=== PATIENT | male | born 1950 | race Caucasian/White ===

== ENCOUNTER 2023-02-20 20:29 | Inpatient (IN) | payer MEDICARE, BC ==
[~2023-02-20] VITALS: Ht 182.9 cm; Wt 79.4 kg
[2023-02-20] MEDS ORDERED: SERT25TA PO (20:58)
[2023-02-20] MEDS ORDERED: paxlovid PO (20:58)
[2023-02-20] MEDS ORDERED: HALO50AM2 PO (20:58)
[2023-02-20] MEDS ORDERED: ACET-3117 PO (20:58)
[2023-02-20] MEDS ORDERED: POLY17PO4 PO (20:58)
[2023-02-20] MEDS ORDERED: LORA0.5T48 PO (20:58)
[2023-02-20] MEDS ORDERED: ONDA-104 PO (20:58)
[2023-02-20] MEDS ORDERED: HYDR-501 PO (20:58)
[2023-02-20] MEDS ORDERED: DIVA500T54 PO (20:58)
[2023-02-20] MEDS ORDERED: CRAN500T3 PO (20:58)
[2023-02-20] MEDS ORDERED: TAMS-3 PO (20:58)
[2023-02-20] MEDS ORDERED: RISP0.5T65 PO (20:58)
[2023-02-20] MEDS ORDERED: MAGN400O6 PO (20:58)
[2023-02-20] MEDS ORDERED: LOPE2TAB25 PO (20:58)
[2023-02-20] MEDS ORDERED: CHOLECALCIFEROL 1,000 UNIT TABLET PO SCH (21:00)
[2023-02-20] MEDS ORDERED: CHOLECALCIFEROL 1,000 UNIT TABLET ONE (21:05)
[2023-02-20 21:13] LABS: HEMOGLOBIN 13.9 g/dL (12.5-16.3); MEAN CORPUSCULAR VOLUME 89.4 fL (73.0-96.2); WHITE BLOOD COUNT (AUTO) 4.8 K/uL (3.6-10.2)
[2023-02-20] MEDS ORDERED: DEXAMETHASONE SOD PHOSPHATE 4 MG INJ IV ONE (21:15)
[2023-02-20 21:19] LABS: CALCIUM 9.1 mg/dL (8.5-10.1); CARBON DIOXIDE 24 mmol/L (21-32); CHLORIDE 101 mmol/L (98-107); CREATININE 1.4 mg/dL (0.6-1.3); GLUCOSE 130 mg/dL (74-106); POTASSIUM 3.6 mmol/L (3.5-5.1); SODIUM SERUM 136 mmol/L (136-145); UREA NITROGEN, BLOOD 21 mg/dL (7-18)
[2023-02-20 21:21] LABS: BASOPHILS % (AUTO) 0.2 % (0.0-2.0); DIFFERENTIAL COMMENT 0; EOSINOPHILS % (AUTO) 0.1 % (0.0-7.0); HEMATOCRIT 40.4 % (36.7-47.1); LYMPHOCYTES # (AUTO) 0.9 K/uL (0.8-4.8); LYMPHOCYTES % (AUTO) 17.7 % (20.5-51.5); MEAN CORPUSCULAR HEMOGLOBIN 30.8 uug (23.8-33.4); MEAN CORPUSCULAR HGB CONC 34 g/dL (32.5-36.3); MONOCYTES # (AUTO) 0.5 K/uL (0.1-1.30); MONOCYTES % (AUTO) 10.8 % (0.0-11.0); NEUTROPHILS # (AUTO) 3.4 K/uL (1.8-8.9); NEUTROPHILS % (AUTO) 71.2 % (38.5-71.5); RED BLOOD CELL COUNT(AUTO) 4.52 MIL/uL (4.06-5.63); RED CELL DISTRIBUTION WIDTH 14.3 % (12.1-16.2)
[2023-02-20 21:24] LABS: PLATELET COUNT (AUTO) 47 K/uL (152-348)
[2023-02-20] MEDS ORDERED: DEXAMETHASONE SOD PHOSPHATE 4 MG INJ ONE (21:39)
[2023-02-20 21:57] LABS: ALANINE AMINOTRANSFERASE 46 U/L (16-63); ALBUMIN 2.8 g/dL (3.4-5.0); ALKALINE PHOSPHATASE 38 U/L (50-136); ASPARTATE AMINOTRANSFERASE 127 U/L (15-37); BILIRUBIN,TOTAL 1.1 mg/dL (0.2-1.0); FERRITIN 1443 ng/mL (26-388); LACTATE DEHYDROGENASE 409 U/L (85-227); NT-PRO BNP 2741 pg/mL (0-125); TOTAL PROTEIN, SERUM 6.4 g/dL (6.4-8.2)
[2023-02-20 22:01] LABS: C-REACTIVE PROTEIN > 25.0 mg/dL (0.0-0.9)
[2023-02-20] MEDS ORDERED: MIRALAX 17 GM POWD.PACK PO PRN (22:15)
[2023-02-20] MEDS ORDERED: MORPHINE SULFATE 2 MG/1 ML DISP.SYRIN IV PRN (22:30)
[2023-02-20] MEDS ORDERED: ALBUTEROL SULFATE 2.5 MG/ 0.5 ML NEBU NEB PRN (22:30)
[2023-02-20] MEDS ORDERED: ONDANSETRON 4 MG/2 ML VIAL IV PRN (22:30)
[2023-02-21 00:40] VITALS: BP 111/64; TEMP 98; O2SAT 96
[2023-02-21] MEDS ORDERED: ENOXAPARIN SODIUM 80 MG/0.8 ML DISP.SYRIN SQ SCH ×3 (01:00→13:00)
[2023-02-21] MEDS ORDERED: ACETAMINOPHEN 325 MG TABLET PO PRN (01:00)
[2023-02-21 04:00] VITALS: BP 116/60; TEMP 98.6; O2SAT 97
[2023-02-21] MEDS: PANTOPRAZOLE SODIUM 40 MG TABLET.DR PO SCH (06:22)
[2023-02-21 06:46] LABS: BASOPHILS % (AUTO) 0.1 % (0.0-2.0); HEMATOCRIT 40.9 % (36.7-47.1); HEMOGLOBIN 13.8 g/dL (12.5-16.3); LYMPHOCYTES # (AUTO) 0.6 K/uL (0.8-4.8); LYMPHOCYTES % (AUTO) 12.9 % (20.5-51.5); MEAN CORPUSCULAR HEMOGLOBIN 30.3 uug (23.8-33.4); MEAN CORPUSCULAR HGB CONC 34 g/dL (32.5-36.3); MEAN CORPUSCULAR VOLUME 89.9 fL (73.0-96.2); MONOCYTES # (AUTO) 0.4 K/uL (0.1-1.30); MONOCYTES % (AUTO) 9.8 % (0.0-11.0); NEUTROPHILS # (AUTO) 3.5 K/uL (1.8-8.9); NEUTROPHILS % (AUTO) 77.2 % (38.5-71.5); PLATELET COUNT (AUTO) 54 K/uL (152-348); RED BLOOD CELL COUNT(AUTO) 4.55 MIL/uL (4.06-5.63); RED CELL DISTRIBUTION WIDTH 14.3 % (12.1-16.2); WHITE BLOOD COUNT (AUTO) 4.5 K/uL (3.6-10.2)
[2023-02-21 07:13] LABS: IRON, SERUM 9 ug/dL (50-175)
[2023-02-21 07:14] LABS: DIFFERENTIAL COMMENT 1
[2023-02-21 07:15] LABS: CALCIUM 9.5 mg/dL (8.5-10.1); CARBON DIOXIDE 25 mmol/L (21-32); CHLORIDE 104 mmol/L (98-107); CREATININE 1.2 mg/dL (0.6-1.3); GLUCOSE 144 mg/dL (74-106); SODIUM SERUM 136 mmol/L (136-145); UREA NITROGEN, BLOOD 19 mg/dL (7-18)
[2023-02-21 07:24] LABS: THYROID STIMULATING HORMONE 0.227 mIU/mL (0.358-3.740)
[2023-02-21 07:54] LABS: ALANINE AMINOTRANSFERASE 37 U/L (16-63); ALBUMIN 2.6 g/dL (3.4-5.0); ALKALINE PHOSPHATASE 33 U/L (50-136); ASPARTATE AMINOTRANSFERASE 108 U/L (15-37); BILIRUBIN,TOTAL 0.9 mg/dL (0.2-1.0); CHOLESTEROL 130 mg/dL (<200); HDL CHOLESTEROL 52 mg/dL (40-60); MAGNESIUM 2.3 mg/dL (1.8-2.4); NT-PRO BNP 2418 pg/mL (0-125); PHOSPHOROUS 2.3 mg/dL (2.5-4.9); TOTAL PROTEIN, SERUM 6.3 g/dL (6.4-8.2); TRIGLYCERIDES 98 MG/DL (30-150)
[2023-02-21] MEDS ORDERED: ASPIRIN EC 81 MG TABLET.DR PO SCH ×2 (09:00→10:52)
[2023-02-21] MEDS ORDERED: DIVALPROEX ER 250 MG TAB.SR.24H PO SCH (09:00)
[2023-02-21] MEDS ORDERED: PAXLOVID PO SCH (09:00)
[2023-02-21] MEDS: risperiDONE 0.5 MG TABLET PO SCH ×2 (09:14→15:51)
[2023-02-21] MEDS: DIVALPROEX 250 MG TABLET.DR PO SCH ×2 (09:14→15:51)
[2023-02-21] MEDS: SERTRALINE HCL 50 MG TABLET PO SCH (09:14)
[2023-02-21] MEDS: DEXAMETHASONE SOD PHOSPHATE 4 MG INJ IV SCH (09:14)
[2023-02-21 09:31] LABS: FERRITIN 1376 ng/mL (26-388)
[2023-02-21] MEDS ORDERED: NORMAL SALINE NASAL 45 ML BOTTLE NS PRN (10:15)
[2023-02-21 11:29] LABS: *RHEUMATOID FACTOR SCREEN NEGATIVE (NEGATIVE)
[2023-02-21 11:57] VITALS: BP 128/69; TEMP 98.1; O2SAT 72; O2SAT 94
[2023-02-21] MEDS ORDERED: REMDESIVIR (CHARGED) 200 MG in IV NORMAL SALINE 210 ML IV ONE (13:00)
[2023-02-21 14:15] LABS: BASOPHILS # (AUTO) 0.1 K/UL (0.0-0.2); BASOPHILS % (AUTO) 1.4 % (0.0-2.0); EOSINOPHILS % (AUTO) 0.1 % (0.0-7.0); HEMATOCRIT 42.4 % (36.7-47.1); LYMPHOCYTES # (AUTO) 0.4 K/uL (0.8-4.8); LYMPHOCYTES % (AUTO) 9.5 % (20.5-51.5); MEAN CORPUSCULAR HGB CONC 33 g/dL (32.5-36.3); MEAN CORPUSCULAR VOLUME 90.7 fL (73.0-96.2); MONOCYTES # (AUTO) 0.4 K/uL (0.1-1.30); MONOCYTES % (AUTO) 8.3 % (0.0-11.0); NEUTROPHILS # (AUTO) 3.4 K/uL (1.8-8.9); NEUTROPHILS % (AUTO) 80.7 % (38.5-71.5); PLATELET COUNT (AUTO) 63 K/uL (152-348); RED BLOOD CELL COUNT(AUTO) 4.68 MIL/uL (4.06-5.63); RED CELL DISTRIBUTION WIDTH 14.3 % (12.1-16.2); WHITE BLOOD COUNT (AUTO) 4.2 K/uL (3.6-10.2)
[2023-02-21 14:24] LABS: DIFFERENTIAL COMMENT 1
[2023-02-21] MEDS: ASPIRIN EC 81 MG TABLET.DR PO SCH (14:48)
[2023-02-21] MEDS: hydrOXYzine HCL 25 MG TABLET PO SCH (14:48)
[2023-02-21] MEDS ORDERED: SWABABLE VALVE TRANSFER SET EA MC ONE (14:59)
[2023-02-21] MEDS ORDERED: IOHEXOL 350 100 ML INFUS..BTL ONE (14:59)
[2023-02-21] MEDS ORDERED: IV NORMAL SALINE 250 ML IV ONE (14:59)
[2023-02-21] MEDS: GUAIFENESIN/DEXTROMETHORPHAN 5 ML UDC PO PRN (15:38)
[2023-02-21 16:15] VITALS: BP 154/71; TEMP 97.5; O2SAT 94
[2023-02-21] MEDS ORDERED: NEUTRA PHOS PACKET PO ONE (17:00)
[2023-02-21 17:01] LABS: ABG BASE EXCESS 0.3 mmol/L; ABG HCO3 22.1 mmol/L; ABG PCO2 28.7 mmHg (35.0-45.0); ABG PH 7.504 (7.350-7.450); ABG PO2 43.2 mmHg (75.0-100.0); ABG SITE RIGHT RADIAL; ABG TOTAL HEMOGLOBIN 15.2 G/dL (13.5-18.0); COHb 0.3 % (0.5-1.5); MetHb 0.4 % (0.0-1.5); O2Hb 81.5 % (94.0-97.0)
[2023-02-21] MEDS: BENZOCAINE/MENTH/CETYLPYRD LOZENGE MM PRN (17:39)
[2023-02-21 18:44] LABS: ABG BASE EXCESS 1.1 mmol/L; ABG HCO3 23.4 mmol/L; ABG PCO2 31.1 mmHg (35.0-45.0); ABG PH 7.494 (7.350-7.450); ABG PO2 58.9 mmHg (75.0-100.0); ABG SITE RIGHT RADIAL; ABG TOTAL HEMOGLOBIN 15.2 G/dL (13.5-18.0); COHb 0.6 % (0.5-1.5); MetHb 0.3 % (0.0-1.5); O2Hb 90.8 % (94.0-97.0)
[2023-02-21] MEDS ORDERED: CEPH500C2 PO (19:22)
[2023-02-21 20:18] VITALS: BP 110/73; TEMP 98.9; O2SAT 98
[2023-02-21] MEDS ORDERED: VANCOMYCIN IV 1,500 MG in IV DEXTROSE 5% 500 ML IV ONE (20:30)
[2023-02-21] MEDS ORDERED: VANCOMYCIN 1000 MG VIAL ONE (20:52)
[2023-02-21] MEDS ORDERED: VANCOMYCIN HCL 500 MG VIAL ONE (20:53)
[2023-02-21] MEDS ORDERED: PIPERACILLIN/TAZO 4.5 GM VIAL IV ONE ×2 (20:53→20:54)
[2023-02-21] MEDS: TAMSULOSIN HCL 0.4 MG CAP.SR.24H PO SCH (21:32)
[2023-02-21] MEDS: TRAZODONE 100 MG TABLET PO PRN (21:33)
[2023-02-21] MEDS ORDERED: PIPERACILLIN SODIUM/TAZOBACTAM 4.5 G in IV DEXTROSE 5% 50 ML IV SCH (22:00)
[2023-02-21] MEDS ORDERED: REMDESIVIR (CHARGED) 100 MG in IV NORMAL SALINE 100 ML IV SCH (22:30)
[2023-02-21 23:16] VITALS: O2SAT 94
[2023-02-22] MEDS: PIPERACILLIN SODIUM/TAZOBACTAM 4.5 G in IV DEXTROSE 5% 50 ML IV SCH ×2 (00:10→06:42)
[2023-02-22 05:14] VITALS: BP 144/68; TEMP 98.2
[2023-02-22 05:58] LABS: *BILIRUBIN,URIN NEGATIVE (NEGATIVE); *BLOOD, URINE 2+ (NEGATIVE); *CLARITY,URINE CLEAR (CLEAR); *COLOR,URINE YELLOW (YELLOW); *KETONES,URINE TRACE (NEGATIVE); *UROBILINOGEN,URINE 0.2 E.U./dl (NORMAL); LEUKOCYTE ESTERASE ,URINE NEGATIVE (NEGATIVE); PH,URINE 6.5 (5.0-8.0); UGLUCOSE NEGATIVE (NEGATIVE)
[2023-02-22 06:11] LABS: *PROTEIN,URINE 3+ (NEGATIVE); NITRITE, URINE NEGATIVE (NEGATIVE)
[2023-02-22 06:17] LABS: BACTERIA,URINE FEW /HPF (NONE SEEN); SQUAMOUS EPITHELIAL CELL,UR FEW /HPF (NONE SEEN); WBC,URINE 0-3 /HPF (0-3)
[2023-02-22] MEDS: PANTOPRAZOLE SODIUM 40 MG TABLET.DR PO SCH (06:43)
[2023-02-22 07:06] LABS: BASOPHILS % (AUTO) 0.1 % (0.0-2.0); HEMATOCRIT 41.6 % (36.7-47.1); HEMOGLOBIN 14.3 g/dL (12.5-16.3); LYMPHOCYTES # (AUTO) 0.6 K/uL (0.8-4.8); LYMPHOCYTES % (AUTO) 10.4 % (20.5-51.5); MEAN CORPUSCULAR HEMOGLOBIN 30.7 uug (23.8-33.4); MEAN CORPUSCULAR HGB CONC 34 g/dL (32.5-36.3); MEAN CORPUSCULAR VOLUME 89.5 fL (73.0-96.2); MONOCYTES # (AUTO) 0.7 K/uL (0.1-1.30); MONOCYTES % (AUTO) 12.8 % (0.0-11.0); NEUTROPHILS # (AUTO) 4.1 K/uL (1.8-8.9); NEUTROPHILS % (AUTO) 76.7 % (38.5-71.5); PLATELET COUNT (AUTO) 76 K/uL (152-348); RED BLOOD CELL COUNT(AUTO) 4.64 MIL/uL (4.06-5.63); RED CELL DISTRIBUTION WIDTH 14.3 % (12.1-16.2); WHITE BLOOD COUNT (AUTO) 5.4 K/uL (3.6-10.2)
[2023-02-22 07:19] LABS: DIFFERENTIAL COMMENT 1
[2023-02-22 07:20] VITALS: O2SAT 91
[2023-02-22 07:27] LABS: LYMPHOCYTES % (MANUAL) 0 % (20-40); NEUTROPHILS % (MANUAL) 0 % (42-75)
[2023-02-22 07:32] LABS: ALANINE AMINOTRANSFERASE 33 U/L (16-63); ALBUMIN 2.4 g/dL (3.4-5.0); ALKALINE PHOSPHATASE 34 U/L (50-136); ASPARTATE AMINOTRANSFERASE 49 U/L (15-37); BILIRUBIN,DIRECT 0.1 mg/dL (0.0-0.2); BILIRUBIN,TOTAL 0.8 mg/dL (0.2-1.0); CALCIUM 9.4 mg/dL (8.5-10.1); CARBON DIOXIDE 23 mmol/L (21-32); CHLORIDE 104 mmol/L (98-107); CREATININE 1.2 mg/dL (0.6-1.3); GLUCOSE 146 mg/dL (74-106); PHOSPHOROUS 2.5 mg/dL (2.5-4.9); POTASSIUM 3.9 mmol/L (3.5-5.1); SODIUM SERUM 140 mmol/L (136-145); TOTAL PROTEIN, SERUM 6.3 g/dL (6.4-8.2); UREA NITROGEN, BLOOD 29 mg/dL (7-18)
[2023-02-22 08:00] VITALS: BP 127/70; TEMP 97.8
[2023-02-22 08:07] LABS: *IMMUNOGLOBULIN G, SERUM 728 mg/dL (603-1613); IMMUNOGLOBULIN A, SERUM 216 mg/dL (61-437); IMMUNOGLOBULIN M, SERUM 75 mg/dL (15-143)
[2023-02-22] MEDS: risperiDONE 0.5 MG TABLET PO SCH ×2 (08:54→16:36)
[2023-02-22] MEDS: DIVALPROEX 250 MG TABLET.DR PO SCH ×2 (08:54→16:36)
[2023-02-22] MEDS: SERTRALINE HCL 50 MG TABLET PO SCH (08:54)
[2023-02-22] MEDS: DEXAMETHASONE SOD PHOSPHATE 4 MG INJ IV SCH (08:55)
[2023-02-22] MEDS: ASPIRIN EC 81 MG TABLET.DR PO SCH (09:03)
[2023-02-22] MEDS: ENOXAPARIN SODIUM 40 MG/0.4 ML DISP.SYRIN SQ SCH (09:08)
[2023-02-22 10:07] LABS: FOLATE (FOLIC ACID), SERUM 9.1 ng/mL (>3.0)
[2023-02-22 11:39] VITALS: BP 129/71; TEMP 97.9; O2SAT 98
[2023-02-22] MEDS: hydrOXYzine HCL 25 MG TABLET PO SCH (12:16)
[2023-02-22 13:06] LABS: FREE KAPPA LT CHAINS SERUM 26.5 mg/L (3.3-19.4); FREE LAMBDA LT CHAIN SERUM 22.5 mg/L (5.7-26.3); KAPPA/LAMBDA RATIO SERUM 1.18 (0.26-1.65)
[2023-02-22] MEDS: REMDESIVIR (CHARGED) 100 MG in IV NORMAL SALINE 100 ML IV SCH (13:25)
[2023-02-22 14:06] LABS: *ANTI-SCLERODERMA-70 AB <0.2 AI (0.0-0.9); *RNP ANTIBODIES <0.2 AI (0.0-0.9); *SJOGREN'S ANTI-SS-A <0.2 AI (0.0-0.9); *SJOGREN'S ANTI-SS-B <0.2 AI (0.0-0.9); *SMITH ANTIBODIES <0.2 AI (0.0-0.9); ANTI-DNA(DS) AB, QN 1 IU/mL (0-9); ANTI-NUCLEAR AB DIRECT Negative (Negative)
[2023-02-22] MEDS: PIPERACILLIN SODIUM/TAZOBACTAM 3.375 G in IV DEXTROSE 5% 100 ML IV SCH ×2 (14:28→22:04)
[2023-02-22 15:07] LABS: A/G RATIO 0.7 (0.7-1.7); ALBUMIN 2.4 g/dL (2.9-4.4); ALPHA-1-GLOBULIN 0.5 g/dL (0.0-0.4); BETA GLOBULIN 0.8 g/dL (0.7-1.3); GAMMA GLOBULIN 1.3 g/dL (0.4-1.8); GLOBULIN, TOTAL 3.5 g/dL (2.2-3.9); M-SPIKE Not Observed g/dL (Not Observed)
[2023-02-22 16:00] VITALS: BP 125/66; TEMP 98.2; O2SAT 95
[2023-02-22 20:00] VITALS: BP 133/70; TEMP 98.3; O2SAT 96
[2023-02-22] MEDS: TRAZODONE 100 MG TABLET PO PRN (20:17)
[2023-02-22] MEDS: TAMSULOSIN HCL 0.4 MG CAP.SR.24H PO SCH (20:17)
[2023-02-23] MEDS: LORAZEPAM 0.5 MG TABLET PO PRN ×2 (02:09→10:45)
[2023-02-23 03:06] LABS: HEPATITIS B SURFACE AB, QUAL Non Reactive (.); HEPATITIS B SURFACE AG Negative (Negative); HEPATITIS C VIRUS ANTIBODY Non Reactive (Non Reactive)
[2023-02-23] MEDS: PIPERACILLIN SODIUM/TAZOBACTAM 3.375 G in IV DEXTROSE 5% 100 ML IV SCH ×3 (05:36→21:29)
[2023-02-23 06:12] VITALS: BP 130/63; TEMP 99.2; O2SAT 96
[2023-02-23] MEDS: PANTOPRAZOLE SODIUM 40 MG TABLET.DR PO SCH (06:20)
[2023-02-23 06:34] LABS: HEMATOCRIT 40.8 % (36.7-47.1); HEMOGLOBIN 13.7 g/dL (12.5-16.3); LYMPHOCYTES # (AUTO) 0.7 K/uL (0.8-4.8); LYMPHOCYTES % (AUTO) 10.5 % (20.5-51.5); MEAN CORPUSCULAR HEMOGLOBIN 30.4 uug (23.8-33.4); MEAN CORPUSCULAR HGB CONC 34 g/dL (32.5-36.3); MEAN CORPUSCULAR VOLUME 90.3 fL (73.0-96.2); MONOCYTES # (AUTO) 0.7 K/uL (0.1-1.30); NEUTROPHILS % (AUTO) 78.5 % (38.5-71.5); PLATELET COUNT (AUTO) 100 K/uL (152-348); RED BLOOD CELL COUNT(AUTO) 4.51 MIL/uL (4.06-5.63); RED CELL DISTRIBUTION WIDTH 14.8 % (12.1-16.2); WHITE BLOOD COUNT (AUTO) 6.4 K/uL (3.6-10.2)
[2023-02-23 06:48] LABS: DIFFERENTIAL COMMENT 1
[2023-02-23 06:58] LABS: ALANINE AMINOTRANSFERASE 27 U/L (16-63); ALBUMIN 2.5 g/dL (3.4-5.0); ALKALINE PHOSPHATASE 33 U/L (50-136); ASPARTATE AMINOTRANSFERASE 26 U/L (15-37); BILIRUBIN,DIRECT 0.2 mg/dL (0.0-0.2); BILIRUBIN,TOTAL 0.6 mg/dL (0.2-1.0); CARBON DIOXIDE 26 mmol/L (21-32); CHLORIDE 105 mmol/L (98-107); CREATININE 1.4 mg/dL (0.6-1.3); GLUCOSE 170 mg/dL (74-106); POTASSIUM 3.6 mmol/L (3.5-5.1); SODIUM SERUM 141 mmol/L (136-145); TOTAL PROTEIN, SERUM 6.2 g/dL (6.4-8.2); UREA NITROGEN, BLOOD 35 mg/dL (7-18)
[2023-02-23 07:07] LABS: CALCIUM 9.4 mg/dL (8.5-10.1)
[2023-02-23 08:02] VITALS: BP 128/77; TEMP 98.1; O2SAT 96
[2023-02-23] MEDS: SERTRALINE HCL 50 MG TABLET PO SCH (08:37)
[2023-02-23] MEDS: DEXAMETHASONE SOD PHOSPHATE 4 MG INJ IV SCH (08:37)
[2023-02-23] MEDS: ASPIRIN EC 81 MG TABLET.DR PO SCH (08:38)
[2023-02-23] MEDS: risperiDONE 0.5 MG TABLET PO SCH ×2 (08:38→16:50)
[2023-02-23] MEDS: DIVALPROEX 250 MG TABLET.DR PO SCH ×2 (08:38→16:50)
[2023-02-23] MEDS: ENOXAPARIN SODIUM 40 MG/0.4 ML DISP.SYRIN SQ SCH (08:39)
[2023-02-23] MEDS: GUAIFENESIN/DEXTROMETHORPHAN 5 ML UDC PO PRN (08:41)
[2023-02-23 11:12] VITALS: BP 126/52; TEMP 97.6; O2SAT 97
[2023-02-23 11:34] VITALS: BP 126/52; TEMP 97.6; O2SAT 97
[2023-02-23] MEDS: hydrOXYzine HCL 25 MG TABLET PO SCH (12:21)
[2023-02-23] MEDS: REMDESIVIR (CHARGED) 100 MG in IV NORMAL SALINE 100 ML IV SCH (13:02)
[2023-02-23 15:11] VITALS: BP 133/69; TEMP 98.6; O2SAT 96
[2023-02-23 20:00] VITALS: BP 130/65; TEMP 98.4; O2SAT 95
[2023-02-23] MEDS: TAMSULOSIN HCL 0.4 MG CAP.SR.24H PO SCH (21:18)
[2023-02-24] VITALS (7 sets, daily range): BP systolic 136–142; BP diastolic 68–79; TEMP 97.7–98.5; O2SAT 91–96
[2023-02-24] MEDS: PIPERACILLIN SODIUM/TAZOBACTAM 3.375 G in IV DEXTROSE 5% 100 ML IV SCH ×3 (05:41→21:26)
[2023-02-24] MEDS: PANTOPRAZOLE SODIUM 40 MG TABLET.DR PO SCH (06:03)
[2023-02-24 06:50] LABS: HEMOGLOBIN 13.3 g/dL (12.5-16.3); LYMPHOCYTES # (AUTO) 0.8 K/uL (0.8-4.8); LYMPHOCYTES % (AUTO) 9.7 % (20.5-51.5); MEAN CORPUSCULAR HEMOGLOBIN 30.8 uug (23.8-33.4); MEAN CORPUSCULAR HGB CONC 34 g/dL (32.5-36.3); MEAN CORPUSCULAR VOLUME 90.3 fL (73.0-96.2); MONOCYTES # (AUTO) 0.9 K/uL (0.1-1.30); NEUTROPHILS # (AUTO) 6.5 K/uL (1.8-8.9); NEUTROPHILS % (AUTO) 79.3 % (38.5-71.5); PLATELET COUNT (AUTO) 110 K/uL (152-348); RED BLOOD CELL COUNT(AUTO) 4.32 MIL/uL (4.06-5.63); RED CELL DISTRIBUTION WIDTH 14.3 % (12.1-16.2); WHITE BLOOD COUNT (AUTO) 8.2 K/uL (3.6-10.2)
[2023-02-24 07:04] LABS: DIFFERENTIAL COMMENT 1
[2023-02-24 07:12] LABS: ALBUMIN 2.4 g/dL (3.4-5.0); BILIRUBIN,DIRECT 0.1 mg/dL (0.0-0.2); BILIRUBIN,TOTAL 0.5 mg/dL (0.2-1.0); CALCIUM 8.8 mg/dL (8.5-10.1); CREATININE 1.2 mg/dL (0.6-1.3); POTASSIUM 3.5 mmol/L (3.5-5.1); TOTAL PROTEIN, SERUM 5.9 g/dL (6.4-8.2)
[2023-02-24 07:17] LABS: C-REACTIVE PROTEIN 2.9 mg/dL (0.0-0.9)
[2023-02-24] MEDS: BENZOCAINE/MENTH/CETYLPYRD LOZENGE MM PRN (07:52)
[2023-02-24] MEDS: SERTRALINE HCL 50 MG TABLET PO SCH (07:53)
[2023-02-24] MEDS: ASPIRIN EC 81 MG TABLET.DR PO SCH (07:53)
[2023-02-24] MEDS: DIVALPROEX 250 MG TABLET.DR PO SCH ×2 (07:53→16:09)
[2023-02-24] MEDS: risperiDONE 0.5 MG TABLET PO SCH ×2 (07:53→16:09)
[2023-02-24] MEDS: ENOXAPARIN SODIUM 40 MG/0.4 ML DISP.SYRIN SQ SCH (07:54)
[2023-02-24] MEDS: DEXAMETHASONE SOD PHOSPHATE 4 MG INJ IV SCH (07:56)
[2023-02-24] MEDS: REMDESIVIR (CHARGED) 100 MG in IV NORMAL SALINE 100 ML IV SCH (12:21)
[2023-02-24] MEDS: hydrOXYzine HCL 25 MG TABLET PO SCH (12:24)
[2023-02-24] MEDS: PROTEIN SUPPLEMENT (PROSTAT) 30 ML LIQUID PO SCH (16:09)
[2023-02-24] MEDS: TAMSULOSIN HCL 0.4 MG CAP.SR.24H PO SCH (21:26)
[2023-02-25 00:17] VITALS: BP 135/72; TEMP 98.3; O2SAT 96
[2023-02-25 04:50] VITALS: BP 144/72; TEMP 98.4; O2SAT 97
[2023-02-25] MEDS: PIPERACILLIN SODIUM/TAZOBACTAM 3.375 G in IV DEXTROSE 5% 100 ML IV SCH ×3 (05:18→20:46)
[2023-02-25] MEDS: PANTOPRAZOLE SODIUM 40 MG TABLET.DR PO SCH (06:22)
[2023-02-25 06:35] LABS: BASOPHILS % (AUTO) 0.3 % (0.0-2.0); EOSINOPHILS % (AUTO) 0.1 % (0.0-7.0); HEMATOCRIT 38.9 % (36.7-47.1); LYMPHOCYTES # (AUTO) 0.9 K/uL (0.8-4.8); LYMPHOCYTES % (AUTO) 10.6 % (20.5-51.5); MEAN CORPUSCULAR HEMOGLOBIN 30.2 uug (23.8-33.4); MEAN CORPUSCULAR HGB CONC 34 g/dL (32.5-36.3); MEAN CORPUSCULAR VOLUME 90.1 fL (73.0-96.2); MONOCYTES # (AUTO) 1.4 K/uL (0.1-1.30); MONOCYTES % (AUTO) 16.2 % (0.0-11.0); NEUTROPHILS # (AUTO) 6.4 K/uL (1.8-8.9); NEUTROPHILS % (AUTO) 72.8 % (38.5-71.5); PLATELET COUNT (AUTO) 129 K/uL (152-348); RED BLOOD CELL COUNT(AUTO) 4.32 MIL/uL (4.06-5.63); RED CELL DISTRIBUTION WIDTH 14.1 % (12.1-16.2); WHITE BLOOD COUNT (AUTO) 8.8 K/uL (3.6-10.2)
[2023-02-25 06:39] LABS: DIFFERENTIAL COMMENT 1
[2023-02-25 06:51] LABS: ALBUMIN 2.3 g/dL (3.4-5.0); BILIRUBIN,DIRECT 0.1 mg/dL (0.0-0.2); BILIRUBIN,TOTAL 0.5 mg/dL (0.2-1.0); CALCIUM 9.2 mg/dL (8.5-10.1); CREATININE 1.1 mg/dL (0.6-1.3); POTASSIUM 3.9 mmol/L (3.5-5.1); TOTAL PROTEIN, SERUM 5.5 g/dL (6.4-8.2)
[2023-02-25] MEDS: risperiDONE 0.5 MG TABLET PO SCH ×2 (09:09→16:54)
[2023-02-25] MEDS: DEXAMETHASONE SOD PHOSPHATE 4 MG INJ IV SCH (09:09)
[2023-02-25] MEDS: DIVALPROEX 250 MG TABLET.DR PO SCH ×2 (09:09→16:53)
[2023-02-25] MEDS: ASPIRIN EC 81 MG TABLET.DR PO SCH (09:09)
[2023-02-25] MEDS: SERTRALINE HCL 50 MG TABLET PO SCH (09:10)
[2023-02-25] MEDS: ENOXAPARIN SODIUM 40 MG/0.4 ML DISP.SYRIN SQ SCH (09:11)
[2023-02-25] MEDS: ENSURE ENLIVE (VAN) 240 ML LIQUID PO SCH (09:12)
[2023-02-25] MEDS: PROTEIN SUPPLEMENT (PROSTAT) 30 ML LIQUID PO SCH ×2 (09:12→16:54)
[2023-02-25] MEDS: REMDESIVIR (CHARGED) 100 MG in IV NORMAL SALINE 100 ML IV SCH (13:16)
[2023-02-25] MEDS: hydrOXYzine HCL 25 MG TABLET PO SCH (13:16)
[2023-02-25 13:44] VITALS: BP 123/63; TEMP 97; O2SAT 97
[2023-02-25 14:41] LABS: BAND % (MANUAL) 2 % (0-10); LYMPHOCYTES % (MANUAL) 11 % (20-40); MONOCYTES % (MANUAL) 15 % (2-10); NEUTROPHILS % (MANUAL) 72 % (42-75)
[2023-02-25 14:42] LABS: ANISOCYTOSIS 1+; PLATELET ESTIMATE DECREASED
[2023-02-25 20:25] VITALS: BP 127/64; TEMP 98.5; O2SAT 94
[2023-02-25] MEDS: TAMSULOSIN HCL 0.4 MG CAP.SR.24H PO SCH (20:46)
[2023-02-25 23:52] VITALS: O2SAT 94
[2023-02-26] VITALS (8 sets, daily range): BP systolic 125–131; BP diastolic 64–69; TEMP 98–98.7; O2SAT 94–96
[2023-02-26] MEDS: PIPERACILLIN SODIUM/TAZOBACTAM 3.375 G in IV DEXTROSE 5% 100 ML IV SCH ×3 (05:12→21:01)
[2023-02-26] MEDS: PANTOPRAZOLE SODIUM 40 MG TABLET.DR PO SCH (05:12)
[2023-02-26 07:03] LABS: POTASSIUM 3.7 mmol/L (3.5-5.1)
[2023-02-26] MEDS: ENOXAPARIN SODIUM 40 MG/0.4 ML DISP.SYRIN SQ SCH (08:22)
[2023-02-26] MEDS: ASPIRIN EC 81 MG TABLET.DR PO SCH (08:36)
[2023-02-26] MEDS: risperiDONE 0.5 MG TABLET PO SCH ×2 (08:36→16:28)
[2023-02-26] MEDS: DIVALPROEX 250 MG TABLET.DR PO SCH ×2 (08:36→16:28)
[2023-02-26] MEDS: SERTRALINE HCL 50 MG TABLET PO SCH (08:37)
[2023-02-26] MEDS: PROTEIN SUPPLEMENT (PROSTAT) 30 ML LIQUID PO SCH ×2 (08:37→16:32)
[2023-02-26] MEDS: DEXAMETHASONE SOD PHOSPHATE 4 MG INJ IV SCH (08:37)
[2023-02-26] MEDS: ENSURE ENLIVE (VAN) 240 ML LIQUID PO SCH (08:38)
[2023-02-26] MEDS: hydrOXYzine HCL 25 MG TABLET PO SCH (13:18)
[2023-02-26] MEDS: BENZOCAINE/MENTH/CETYLPYRD LOZENGE MM PRN (18:05)
[2023-02-26] MEDS: TAMSULOSIN HCL 0.4 MG CAP.SR.24H PO SCH (20:21)
[2023-02-26] MEDS: TRAZODONE 100 MG TABLET PO PRN (20:21)
[2023-02-27] MEDS: PIPERACILLIN SODIUM/TAZOBACTAM 3.375 G in IV DEXTROSE 5% 100 ML IV SCH ×3 (05:09→21:39)
[2023-02-27] MEDS: PANTOPRAZOLE SODIUM 40 MG TABLET.DR PO SCH (06:24)
[2023-02-27 06:51] LABS: BASOPHILS % (AUTO) 0.2 % (0.0-2.0); EOSINOPHILS # (AUTO) 0.2 K/uL (0.0-0.7); EOSINOPHILS % (AUTO) 1.6 % (0.0-7.0); HEMATOCRIT 39.8 % (36.7-47.1); HEMOGLOBIN 13.5 g/dL (12.5-16.3); LYMPHOCYTES # (AUTO) 2.1 K/uL (0.8-4.8); LYMPHOCYTES % (AUTO) 18.4 % (20.5-51.5); MEAN CORPUSCULAR HEMOGLOBIN 30.3 uug (23.8-33.4); MEAN CORPUSCULAR HGB CONC 34 g/dL (32.5-36.3); MEAN CORPUSCULAR VOLUME 89.6 fL (73.0-96.2); MONOCYTES # (AUTO) 1.4 K/uL (0.1-1.30); MONOCYTES % (AUTO) 11.9 % (0.0-11.0); NEUTROPHILS # (AUTO) 7.9 K/uL (1.8-8.9); NEUTROPHILS % (AUTO) 67.9 % (38.5-71.5); PLATELET COUNT (AUTO) 183 K/uL (152-348); RED BLOOD CELL COUNT(AUTO) 4.44 MIL/uL (4.06-5.63); WHITE BLOOD COUNT (AUTO) 11.6 K/uL (3.6-10.2)
[2023-02-27 07:02] LABS: DIFFERENTIAL COMMENT 1
[2023-02-27 07:04] LABS: ALBUMIN 2.2 g/dL (3.4-5.0); BILIRUBIN,TOTAL 0.7 mg/dL (0.2-1.0); CALCIUM 8.4 mg/dL (8.5-10.1); CREATININE 1.1 mg/dL (0.6-1.3); MAGNESIUM 2.3 mg/dL (1.8-2.4); PHOSPHOROUS 2.5 mg/dL (2.5-4.9); POTASSIUM 3.7 mmol/L (3.5-5.1)
[2023-02-27] MEDS: ENOXAPARIN SODIUM 40 MG/0.4 ML DISP.SYRIN SQ SCH (10:00)
[2023-02-27] MEDS: risperiDONE 0.5 MG TABLET PO SCH ×2 (10:00→17:50)
[2023-02-27] MEDS: ASPIRIN EC 81 MG TABLET.DR PO SCH (10:00)
[2023-02-27] MEDS: DIVALPROEX 250 MG TABLET.DR PO SCH ×2 (10:00→17:50)
[2023-02-27] MEDS: DEXAMETHASONE SOD PHOSPHATE 4 MG INJ IV SCH (10:00)
[2023-02-27] MEDS: ENSURE ENLIVE (VAN) 240 ML LIQUID PO SCH (10:01)
[2023-02-27] MEDS: PROTEIN SUPPLEMENT (PROSTAT) 30 ML LIQUID PO SCH ×2 (10:01→17:50)
[2023-02-27] MEDS: SERTRALINE HCL 50 MG TABLET PO SCH (10:04)
[2023-02-27 11:20] LABS: BAND % (MANUAL) 2 % (0-10); EOSINOPHILS % (MANUAL) 1 % (0-8); LYMPHOCYTES % (MANUAL) 15 % (20-40); MONOCYTES % (MANUAL) 13 % (2-10); NEUTROPHILS % (MANUAL) 69 % (42-75); PLATELET ESTIMATE ADEQUATE
[2023-02-27 11:21] LABS: ANISOCYTOSIS 1+
[2023-02-27 11:50] VITALS: BP 107/56; TEMP 98.8; O2SAT 95
[2023-02-27] MEDS: hydrOXYzine HCL 25 MG TABLET PO SCH (14:04)
[2023-02-27 14:34] VITALS: BP 109/55; TEMP 98.8; O2SAT 96
[2023-02-27 15:59] VITALS: BP 110/58; TEMP 98.3; O2SAT 94
[2023-02-27 16:13] VITALS: O2SAT 94
[2023-02-27] MEDS: TAMSULOSIN HCL 0.4 MG CAP.SR.24H PO SCH (20:15)
[2023-02-27 20:30] VITALS: BP 106/56; TEMP 97.9; O2SAT 95
[2023-02-28] VITALS (7 sets, daily range): BP systolic 111–132; BP diastolic 59–65; TEMP 97.4–98.1; O2SAT 90–95
[2023-02-28] MEDS: PIPERACILLIN SODIUM/TAZOBACTAM 3.375 G in IV DEXTROSE 5% 100 ML IV SCH ×3 (05:36→21:09)
[2023-02-28] MEDS: PANTOPRAZOLE SODIUM 40 MG TABLET.DR PO SCH (06:23)
[2023-02-28 06:25] LABS: BASOPHILS % (AUTO) 0.2 % (0.0-2.0); EOSINOPHILS # (AUTO) 0.1 K/uL (0.0-0.7); EOSINOPHILS % (AUTO) 1.2 % (0.0-7.0); HEMATOCRIT 39.9 % (36.7-47.1); HEMOGLOBIN 13.1 g/dL (12.5-16.3); LYMPHOCYTES # (AUTO) 2.1 K/uL (0.8-4.8); LYMPHOCYTES % (AUTO) 18.1 % (20.5-51.5); MEAN CORPUSCULAR HEMOGLOBIN 29.7 uug (23.8-33.4); MEAN CORPUSCULAR HGB CONC 33 g/dL (32.5-36.3); MEAN CORPUSCULAR VOLUME 90.5 fL (73.0-96.2); MONOCYTES # (AUTO) 1.1 K/uL (0.1-1.30); MONOCYTES % (AUTO) 9.3 % (0.0-11.0); NEUTROPHILS # (AUTO) 8.4 K/uL (1.8-8.9); NEUTROPHILS % (AUTO) 71.2 % (38.5-71.5); PLATELET COUNT (AUTO) 202 K/uL (152-348); RED BLOOD CELL COUNT(AUTO) 4.41 MIL/uL (4.06-5.63); RED CELL DISTRIBUTION WIDTH 14.4 % (12.1-16.2); WHITE BLOOD COUNT (AUTO) 11.8 K/uL (3.6-10.2)
[2023-02-28 06:58] LABS: DIFFERENTIAL COMMENT 1
[2023-02-28 07:00] LABS: C-REACTIVE PROTEIN 0.6 mg/dL (0.0-0.9); CALCIUM 8.5 mg/dL (8.5-10.1); CREATININE 1.1 mg/dL (0.6-1.3); MAGNESIUM 2.4 mg/dL (1.8-2.4); PHOSPHOROUS 2.3 mg/dL (2.5-4.9); POTASSIUM 3.1 mmol/L (3.5-5.1)
[2023-02-28 08:06] LABS: CALCIUM 8.5 mg/dL (8.5-10.1); CREATININE 1.2 mg/dL (0.6-1.3); POTASSIUM 3.4 mmol/L (3.5-5.1)
[2023-02-28] MEDS: SERTRALINE HCL 50 MG TABLET PO SCH (09:30)
[2023-02-28] MEDS: ASPIRIN EC 81 MG TABLET.DR PO SCH (09:31)
[2023-02-28] MEDS: PROTEIN SUPPLEMENT (PROSTAT) 30 ML LIQUID PO SCH ×2 (09:31→15:52)
[2023-02-28] MEDS: ENSURE ENLIVE (VAN) 240 ML LIQUID PO SCH (09:31)
[2023-02-28] MEDS: risperiDONE 0.5 MG TABLET PO SCH ×2 (09:31→15:52)
[2023-02-28] MEDS: DIVALPROEX 250 MG TABLET.DR PO SCH ×2 (09:31→15:51)
[2023-02-28] MEDS: DEXAMETHASONE SOD PHOSPHATE 4 MG INJ IV SCH (09:37)
[2023-02-28] MEDS: ENOXAPARIN SODIUM 40 MG/0.4 ML DISP.SYRIN SQ SCH (09:38)
[2023-02-28] MEDS ORDERED: POTASSIUM CHLORIDE 10 MEQ TAB.PRT.SR PO ONE (10:00)
[2023-02-28 10:28] LABS: BAND % (MANUAL) 1 % (0-10); EOSINOPHILS % (MANUAL) 1 % (0-8); LYMPHOCYTES % (MANUAL) 20 % (20-40); MONOCYTES % (MANUAL) 8 % (2-10); NEUTROPHILS % (MANUAL) 70 % (42-75); PLATELET ESTIMATE ADEQUATE
[2023-02-28] MEDS: hydrOXYzine HCL 25 MG TABLET PO SCH (13:42)
[2023-02-28] MEDS ORDERED: NEUTRA PHOS PACKET PO ONE (16:00)
[2023-02-28] MEDS: TAMSULOSIN HCL 0.4 MG CAP.SR.24H PO SCH (21:09)
[2023-02-28] MEDS: TRAZODONE 100 MG TABLET PO PRN (21:11)
[2023-03-01 00:21] VITALS: O2SAT 94
[2023-03-01 04:35] VITALS: BP 128/60; TEMP 97.7; O2SAT 96
[2023-03-01] MEDS: PANTOPRAZOLE SODIUM 40 MG TABLET.DR PO SCH (06:18)
[2023-03-01 07:00] LABS: BASOPHILS % (AUTO) 0.2 % (0.0-2.0); EOSINOPHILS # (AUTO) 0.1 K/uL (0.0-0.7); EOSINOPHILS % (AUTO) 0.8 % (0.0-7.0); HEMATOCRIT 39.2 % (36.7-47.1); HEMOGLOBIN 13.2 g/dL (12.5-16.3); LYMPHOCYTES # (AUTO) 2.2 K/uL (0.8-4.8); LYMPHOCYTES % (AUTO) 16.1 % (20.5-51.5); MEAN CORPUSCULAR HEMOGLOBIN 30.2 uug (23.8-33.4); MEAN CORPUSCULAR HGB CONC 34 g/dL (32.5-36.3); MEAN CORPUSCULAR VOLUME 89.9 fL (73.0-96.2); MONOCYTES # (AUTO) 1.1 K/uL (0.1-1.30); MONOCYTES % (AUTO) 7.7 % (0.0-11.0); NEUTROPHILS # (AUTO) 10.5 K/uL (1.8-8.9); NEUTROPHILS % (AUTO) 75.2 % (38.5-71.5); PLATELET COUNT (AUTO) 206 K/uL (152-348); RED BLOOD CELL COUNT(AUTO) 4.36 MIL/uL (4.06-5.63); RED CELL DISTRIBUTION WIDTH 14.3 % (12.1-16.2); WHITE BLOOD COUNT (AUTO) 13.9 K/uL (3.6-10.2)
[2023-03-01 07:02] LABS: DIFFERENTIAL COMMENT 1
[2023-03-01 07:29] LABS: ALBUMIN 2.3 g/dL (3.4-5.0); BILIRUBIN,TOTAL 0.7 mg/dL (0.2-1.0); CALCIUM 8.7 mg/dL (8.5-10.1); CREATININE 1.1 mg/dL (0.6-1.3); MAGNESIUM 2.2 mg/dL (1.8-2.4); POTASSIUM 3.7 mmol/L (3.5-5.1); TOTAL PROTEIN, SERUM 5.4 g/dL (6.4-8.2)
[2023-03-01 08:00] VITALS: BP 109/66; TEMP 98; O2SAT 93
[2023-03-01] MEDS: risperiDONE 0.5 MG TABLET PO SCH ×2 (09:44→16:49)
[2023-03-01] MEDS: DIVALPROEX 250 MG TABLET.DR PO SCH ×2 (09:45→16:49)
[2023-03-01] MEDS: SERTRALINE HCL 50 MG TABLET PO SCH (09:45)
[2023-03-01] MEDS: ASPIRIN EC 81 MG TABLET.DR PO SCH (09:45)
[2023-03-01] MEDS: DEXAMETHASONE SOD PHOSPHATE 4 MG INJ IV SCH (09:45)
[2023-03-01] MEDS: ENSURE ENLIVE (VAN) 240 ML LIQUID PO SCH (09:46)
[2023-03-01] MEDS: PROTEIN SUPPLEMENT (PROSTAT) 30 ML LIQUID PO SCH ×2 (09:46→16:49)
[2023-03-01] MEDS: ENOXAPARIN SODIUM 40 MG/0.4 ML DISP.SYRIN SQ SCH (09:47)
[2023-03-01 11:30] VITALS: BP 105/61; TEMP 98.5; O2SAT 95
[2023-03-01] MEDS: hydrOXYzine HCL 25 MG TABLET PO SCH (11:55)
[2023-03-01 15:51] VITALS: BP 104/58; TEMP 98.3; O2SAT 96
[2023-03-01] MEDS: TAMSULOSIN HCL 0.4 MG CAP.SR.24H PO SCH (20:20)
[2023-03-01 20:21] VITALS: BP 101/50; TEMP 97.5; O2SAT 92
[2023-03-01] MEDS: TRAZODONE 100 MG TABLET PO PRN (20:24)
[2023-03-02 00:17] VITALS: O2SAT 93
[2023-03-02 00:19] VITALS: BP 104/52; TEMP 97.8; O2SAT 93
[2023-03-02 04:10] VITALS: BP 101/53; TEMP 97.7; O2SAT 93
[2023-03-02] MEDS: PANTOPRAZOLE SODIUM 40 MG TABLET.DR PO SCH (06:15)
[2023-03-02 07:15] LABS: BASOPHILS % (AUTO) 0.2 % (0.0-2.0); EOSINOPHILS % (AUTO) 0.3 % (0.0-7.0); HEMATOCRIT 39.3 % (36.7-47.1); HEMOGLOBIN 13.4 g/dL (12.5-16.3); LYMPHOCYTES # (AUTO) 2.2 K/uL (0.8-4.8); LYMPHOCYTES % (AUTO) 12.8 % (20.5-51.5); MEAN CORPUSCULAR HEMOGLOBIN 30.8 uug (23.8-33.4); MEAN CORPUSCULAR HGB CONC 34 g/dL (32.5-36.3); MEAN CORPUSCULAR VOLUME 90.4 fL (73.0-96.2); MONOCYTES # (AUTO) 1.5 K/uL (0.1-1.30); MONOCYTES % (AUTO) 9.1 % (0.0-11.0); NEUTROPHILS # (AUTO) 13.2 K/uL (1.8-8.9); NEUTROPHILS % (AUTO) 77.6 % (38.5-71.5); PLATELET COUNT (AUTO) 197 K/uL (152-348); RED BLOOD CELL COUNT(AUTO) 4.35 MIL/uL (4.06-5.63); RED CELL DISTRIBUTION WIDTH 14.1 % (12.1-16.2)
[2023-03-02 07:24] LABS: DIFFERENTIAL COMMENT 1
[2023-03-02] MEDS: DEXAMETHASONE SOD PHOSPHATE 4 MG INJ IV SCH (08:59)
[2023-03-02] MEDS: ASPIRIN EC 81 MG TABLET.DR PO SCH (09:00)
[2023-03-02] MEDS: DIVALPROEX 250 MG TABLET.DR PO SCH (09:00)
[2023-03-02] MEDS: risperiDONE 0.5 MG TABLET PO SCH (09:00)
[2023-03-02] MEDS: SERTRALINE HCL 50 MG TABLET PO SCH (09:00)
[2023-03-02] MEDS: PROTEIN SUPPLEMENT (PROSTAT) 30 ML LIQUID PO SCH (09:01)
[2023-03-02] MEDS: ENSURE ENLIVE (VAN) 240 ML LIQUID PO SCH (09:01)
[2023-03-02] MEDS: ENOXAPARIN SODIUM 40 MG/0.4 ML DISP.SYRIN SQ SCH (09:03)
[2023-03-02] MEDS: GUAIFENESIN/DEXTROMETHORPHAN 5 ML UDC PO PRN (10:02)
[2023-03-02] MEDS ORDERED: SODI45SP5 NS (11:08)
[2023-03-02] MEDS ORDERED: ENOX40DI SQ (11:08)
[2023-03-02] MEDS ORDERED: PROT30LI PO (11:08)
[2023-03-02] MEDS ORDERED: TRAZ-257 PO (11:08)
[2023-03-02] MEDS ORDERED: TAMS-3 PO (11:08)
[2023-03-02] MEDS ORDERED: Benzocaine/Menth/Cetylpyrd Cl MM (11:08)
[2023-03-02] MEDS ORDERED: GUAI5SYR PO (11:08)
[2023-03-02] MEDS ORDERED: ASPI-618 PO (11:08)
[2023-03-02] MEDS ORDERED: ALBU2.5V13 NEB (11:08)
[2023-03-02] MEDS ORDERED: PANT40TA49 PO (11:08)
[2023-03-02 11:45] VITALS: BP 106/59; TEMP 98.8; O2SAT 95
[2023-03-02] MEDS: hydrOXYzine HCL 25 MG TABLET PO SCH (12:59)
[2023-03-02 14:10] LABS: ANISOCYTOSIS 1+; BAND % (MANUAL) 1 % (0-10); LYMPHOCYTES % (MANUAL) 13 % (20-40); MONOCYTES % (MANUAL) 8 % (2-10); NEUTROPHILS % (MANUAL) 78 % (42-75); PLATELET ESTIMATE ADEQUATE
== END 2023-03-02 13:44 | DRG 871 ==
LOC: ER 20:30 → TELE3 22:17 → MEDSURG3 03-02 08:52
PROVIDERS: ADMIT Internal Medicine; ATTEND Internal Medicine
PROC: XW033E5 Introduction of Remdesivir Anti-infective into Peripheral Vein, Percutaneous Approach, New Technology Group 5 (ICD-10-PCS; principal; 2023-02-21)
DX: A41.89 Other specified sepsis (principal); I21.A1 Myocardial infarction type 2; J12.82 Pneumonia due to coronavirus disease 2019; U07.1 COVID-19; J96.01 Acute respiratory failure with hypoxia; N17.0 Acute kidney failure with tubular necrosis; J15.9 Unspecified bacterial pneumonia; J69.0 Pneumonitis due to inhalation of food and vomit; D68.69 Other thrombophilia; E87.1 Hypo-osmolality and hyponatremia; G93.40 Encephalopathy, unspecified; J44.0 Chronic obstructive pulmonary disease with (acute) lower respiratory infection; Z74.09 Other reduced mobility; D64.9 Anemia, unspecified; D69.6 Thrombocytopenia, unspecified; E88.09 Other disorders of plasma-protein metabolism, not elsewhere classified; I70.0 Atherosclerosis of aorta; N18.9 Chronic kidney disease, unspecified; I12.9 Hypertensive chronic kidney disease with stage 1 through stage 4 chronic kidney disease, or unspecified chronic kidney disease; Z87.891 Personal history of nicotine dependence; E03.8 Other specified hypothyroidism; F32.A Depression, unspecified; F41.9 Anxiety disorder, unspecified; N40.0 Benign prostatic hyperplasia without lower urinary tract symptoms; Z28.310 Unvaccinated for COVID-19
CPT/HCPCS: 36415; 36600; 70030-TC; 71045; 71275; 76700; 82746; 82784; 83550; 83615; 83735; 84100; 84155; 84165; 84443; 84484; 85025; 85610; 85730; 86038; 86140; 86334; 86430; 86706; 86803; 87040; 87340; 93005; 93307; A4606; A4663; G0378; J0248; J1100; J1650; J2543; J3370; J3490; J7040; J7060; Q9967

== ENCOUNTER 2023-03-02 13:53 | Inpatient (IN) | payer MEDICARE, BC ==
[~2023-03-02] VITALS: Ht 182.9 cm; Wt 79.4 kg
[~2023-03-02 13:53] MED LIST: ACET-3117 PO; ALBU2.5V13 NEB; ASPI-618 PO; Benzocaine/Menth/Cetylpyrd Cl MM; CEPH500C2 PO; CRAN500T3 PO; DIVA500T54 PO; ENOX40DI SQ; GUAI5SYR PO; HALO50AM2 PO; HYDR-501 PO; LOPE2TAB25 PO; LORA0.5T48 PO; MAGN400O6 PO; ONDA-104 PO; PANT40TA49 PO; POLY17PO4 PO; PROT30LI PO; RISP0.5T65 PO; SERT25TA PO; SODI45SP5 NS; TAMS-3 PO; TRAZ-257 PO; paxlovid PO
[2023-03-02 16:00] VITALS: BP 126/61; TEMP 97.6; O2SAT 94
[2023-03-02] MEDS ORDERED: ONDANSETRON HCL 4 MG TABLET PO PRN (16:30)
[2023-03-02] MEDS ORDERED: MAGNESIUM HYDROXIDE 30 ML LIQUID UDC PO PRN (16:30)
[2023-03-02] MEDS ORDERED: NORMAL SALINE NASAL 45 ML BOTTLE NS PRN (16:30)
[2023-03-02] MEDS ORDERED: MIRALAX 17 GM POWD.PACK PO PRN (16:30)
[2023-03-02] MEDS: DIVALPROEX ER 250 MG TAB.SR.24H PO SCH (17:09)
[2023-03-02] MEDS: risperiDONE 0.5 MG TABLET PO SCH (17:09)
[2023-03-02 20:00] VITALS: BP 112/47; TEMP 97.4; O2SAT 95
[2023-03-02] MEDS: TAMSULOSIN HCL 0.4 MG CAP.SR.24H PO SCH (21:21)
[2023-03-03 04:00] VITALS: BP 112/58; TEMP 97.6; O2SAT 94
[2023-03-03] MEDS: PANTOPRAZOLE SODIUM 40 MG TABLET.DR PO SCH (06:42)
[2023-03-03 08:00] VITALS: BP 128/72; TEMP 98.4; O2SAT 98
[2023-03-03] MEDS: SERTRALINE HCL 50 MG TABLET PO SCH (08:57)
[2023-03-03] MEDS: risperiDONE 0.5 MG TABLET PO SCH ×2 (08:57→17:27)
[2023-03-03] MEDS: DIVALPROEX ER 250 MG TAB.SR.24H PO SCH ×2 (08:57→17:27)
[2023-03-03] MEDS: ASPIRIN EC 81 MG TABLET.DR PO SCH (08:57)
[2023-03-03] MEDS: ENOXAPARIN SODIUM 40 MG/0.4 ML DISP.SYRIN SQ SCH (08:58)
[2023-03-03] MEDS: PROTEIN SUPPLEMENT (PROSTAT) 30 ML LIQUID PO SCH (08:59)
[2023-03-03] MEDS: NEPRO (VANILLA) 237 ML CAN PO SCH (09:10)
[2023-03-03] MEDS: hydrOXYzine HCL 25 MG TABLET PO SCH (14:21)
[2023-03-03] MEDS: ACETAMINOPHEN 325 MG TABLET PO PRN (18:35)
[2023-03-03] MEDS: TAMSULOSIN HCL 0.4 MG CAP.SR.24H PO SCH (20:59)
[2023-03-03] MEDS: TRAZODONE 100 MG TABLET PO PRN (20:59)
[2023-03-03 22:22] VITALS: BP 103/53; TEMP 97.6; O2SAT 96
[2023-03-04] MEDS: TRAZODONE 100 MG TABLET PO PRN ×2 (01:33→20:18)
[2023-03-04] MEDS: ACETAMINOPHEN 325 MG TABLET PO PRN ×3 (01:33→15:54)
[2023-03-04] MEDS: PANTOPRAZOLE SODIUM 40 MG TABLET.DR PO SCH ×2 (06:40→08:51)
[2023-03-04 06:46] VITALS: BP 112/52; TEMP 97.6; O2SAT 95
[2023-03-04 07:43] VITALS: BP 105/58; TEMP 97.9; O2SAT 95
[2023-03-04] MEDS: PROTEIN SUPPLEMENT (PROSTAT) 30 ML LIQUID PO SCH (08:00)
[2023-03-04] MEDS: DIVALPROEX ER 250 MG TAB.SR.24H PO SCH ×2 (08:51→16:06)
[2023-03-04] MEDS: risperiDONE 0.5 MG TABLET PO SCH ×2 (08:51→16:06)
[2023-03-04] MEDS: ASPIRIN EC 81 MG TABLET.DR PO SCH (08:51)
[2023-03-04] MEDS: SERTRALINE HCL 50 MG TABLET PO SCH (08:51)
[2023-03-04] MEDS: NEPRO (VANILLA) 237 ML CAN PO SCH (08:52)
[2023-03-04] MEDS: ENOXAPARIN SODIUM 40 MG/0.4 ML DISP.SYRIN SQ SCH (08:52)
[2023-03-04] MEDS: hydrOXYzine HCL 25 MG TABLET PO SCH (13:26)
[2023-03-04 16:00] VITALS: BP 124/66; TEMP 97.8; O2SAT 95
[2023-03-04 20:00] VITALS: BP 115/65; TEMP 98; O2SAT 95
[2023-03-04] MEDS: TAMSULOSIN HCL 0.4 MG CAP.SR.24H PO SCH (20:18)
[2023-03-05] MEDS: ACETAMINOPHEN 325 MG TABLET PO PRN ×3 (01:31→21:38)
[2023-03-05 04:00] VITALS: BP 121/68; TEMP 97.8; O2SAT 97
[2023-03-05 07:12] LABS: BASOPHILS % (AUTO) 0.3 % (0.0-2.0); EOSINOPHILS % (AUTO) 0.1 % (0.0-7.0); HEMATOCRIT 35.2 % (36.7-47.1); HEMOGLOBIN 11.9 g/dL (12.5-16.3); LYMPHOCYTES # (AUTO) 1.3 K/uL (0.8-4.8); LYMPHOCYTES % (AUTO) 9.5 % (20.5-51.5); MEAN CORPUSCULAR HEMOGLOBIN 30.5 uug (23.8-33.4); MEAN CORPUSCULAR HGB CONC 34 g/dL (32.5-36.3); MEAN CORPUSCULAR VOLUME 90.1 fL (73.0-96.2); MONOCYTES # (AUTO) 1.5 K/uL (0.1-1.30); MONOCYTES % (AUTO) 10.6 % (0.0-11.0); NEUTROPHILS # (AUTO) 11.1 K/uL (1.8-8.9); NEUTROPHILS % (AUTO) 79.5 % (38.5-71.5); PLATELET COUNT (AUTO) 152 K/uL (152-348); RED BLOOD CELL COUNT(AUTO) 3.91 MIL/uL (4.06-5.63); RED CELL DISTRIBUTION WIDTH 14.3 % (12.1-16.2)
[2023-03-05 07:26] LABS: DIFFERENTIAL COMMENT 1
[2023-03-05 07:51] LABS: ALANINE AMINOTRANSFERASE 16 U/L (16-63); ALBUMIN 2.1 g/dL (3.4-5.0); ALKALINE PHOSPHATASE 45 U/L (50-136); ASPARTATE AMINOTRANSFERASE 12 U/L (15-37); BILIRUBIN,TOTAL 0.8 mg/dL (0.2-1.0); CALCIUM 8.4 mg/dL (8.5-10.1); CARBON DIOXIDE 26 mmol/L (21-32); CHLORIDE 104 mmol/L (98-107); CREATININE 1.1 mg/dL (0.6-1.3); GLUCOSE 99 mg/dL (74-106); SODIUM SERUM 138 mmol/L (136-145); TOTAL PROTEIN, SERUM 5.3 g/dL (6.4-8.2); UREA NITROGEN, BLOOD 14 mg/dL (7-18)
[2023-03-05 08:00] VITALS: BP 111/58; TEMP 97.5; O2SAT 96
[2023-03-05] MEDS: DIVALPROEX ER 250 MG TAB.SR.24H PO SCH ×2 (08:05→16:16)
[2023-03-05] MEDS: ASPIRIN EC 81 MG TABLET.DR PO SCH (08:05)
[2023-03-05] MEDS: PROTEIN SUPPLEMENT (PROSTAT) 30 ML LIQUID PO SCH (08:05)
[2023-03-05] MEDS: SERTRALINE HCL 50 MG TABLET PO SCH (08:05)
[2023-03-05] MEDS: risperiDONE 0.5 MG TABLET PO SCH ×2 (08:05→16:16)
[2023-03-05] MEDS: NEPRO (VANILLA) 237 ML CAN PO SCH (08:06)
[2023-03-05] MEDS: ENOXAPARIN SODIUM 40 MG/0.4 ML DISP.SYRIN SQ SCH (08:07)
[2023-03-05] MEDS: hydrOXYzine HCL 25 MG TABLET PO SCH (12:11)
[2023-03-05 16:09] VITALS: BP 148/75; TEMP 97.7; O2SAT 96
[2023-03-05] MEDS: TAMSULOSIN HCL 0.4 MG CAP.SR.24H PO SCH (20:52)
[2023-03-05] MEDS: TRAZODONE 100 MG TABLET PO PRN (20:52)
[2023-03-06] MEDS: ACETAMINOPHEN 325 MG TABLET PO PRN ×3 (03:42→20:28)
[2023-03-06] MEDS: PANTOPRAZOLE SODIUM 40 MG TABLET.DR PO SCH (06:32)
[2023-03-06 07:13] LABS: BASOPHILS # (AUTO) 0.1 K/UL (0.0-0.2); BASOPHILS % (AUTO) 0.5 % (0.0-2.0); EOSINOPHILS % (AUTO) 0.1 % (0.0-7.0); HEMATOCRIT 34.6 % (36.7-47.1); HEMOGLOBIN 11.8 g/dL (12.5-16.3); LYMPHOCYTES # (AUTO) 1.3 K/uL (0.8-4.8); LYMPHOCYTES % (AUTO) 10.4 % (20.5-51.5); MEAN CORPUSCULAR HEMOGLOBIN 31.1 uug (23.8-33.4); MEAN CORPUSCULAR HGB CONC 34 g/dL (32.5-36.3); MEAN CORPUSCULAR VOLUME 91.1 fL (73.0-96.2); MONOCYTES # (AUTO) 1.4 K/uL (0.1-1.30); MONOCYTES % (AUTO) 11.5 % (0.0-11.0); NEUTROPHILS # (AUTO) 9.7 K/uL (1.8-8.9); NEUTROPHILS % (AUTO) 77.5 % (38.5-71.5); PLATELET COUNT (AUTO) 162 K/uL (152-348); RED CELL DISTRIBUTION WIDTH 14.1 % (12.1-16.2); WHITE BLOOD COUNT (AUTO) 12.5 K/uL (3.6-10.2)
[2023-03-06 07:19] LABS: DIFFERENTIAL COMMENT 1
[2023-03-06 07:30] LABS: CARBON DIOXIDE 26 mmol/L (21-32); CHLORIDE 104 mmol/L (98-107); CREATININE 1.1 mg/dL (0.6-1.3); GLUCOSE 105 mg/dL (74-106); MAGNESIUM 2.1 mg/dL (1.8-2.4); PHOSPHOROUS 3.1 mg/dL (2.5-4.9); POTASSIUM 3.8 mmol/L (3.5-5.1); SODIUM SERUM 139 mmol/L (136-145); UREA NITROGEN, BLOOD 12 mg/dL (7-18)
[2023-03-06 07:34] LABS: C-REACTIVE PROTEIN 12.89 mg/dL (0.00-0.30)
[2023-03-06 08:00] VITALS: BP 116/58; TEMP 98; O2SAT 100
[2023-03-06 08:03] LABS: CALCIUM 9.1 mg/dL (8.5-10.1)
[2023-03-06] MEDS: ASPIRIN EC 81 MG TABLET.DR PO SCH (08:11)
[2023-03-06] MEDS: DIVALPROEX ER 250 MG TAB.SR.24H PO SCH ×2 (08:11→16:01)
[2023-03-06] MEDS: risperiDONE 0.5 MG TABLET PO SCH ×2 (08:11→16:01)
[2023-03-06] MEDS: ENOXAPARIN SODIUM 40 MG/0.4 ML DISP.SYRIN SQ SCH (08:12)
[2023-03-06] MEDS: SERTRALINE HCL 50 MG TABLET PO SCH (08:12)
[2023-03-06] MEDS: PROTEIN SUPPLEMENT (PROSTAT) 30 ML LIQUID PO SCH (08:12)
[2023-03-06] MEDS: NEPRO (VANILLA) 237 ML CAN PO SCH (08:13)
[2023-03-06] MEDS: hydrOXYzine HCL 25 MG TABLET PO SCH (12:03)
[2023-03-06 16:22] VITALS: BP 121/61; TEMP 98.8; O2SAT 94
[2023-03-06] MEDS: TRAZODONE 100 MG TABLET PO PRN (20:28)
[2023-03-06] MEDS: TAMSULOSIN HCL 0.4 MG CAP.SR.24H PO SCH (20:28)
[2023-03-07] VITALS (8 sets, daily range): BP systolic 113–154; BP diastolic 43–68; TEMP 97.7–98.7; O2SAT 93–97
[2023-03-07] MEDS: ACETAMINOPHEN 325 MG TABLET PO PRN ×4 (02:02→20:13)
[2023-03-07] MEDS: PANTOPRAZOLE SODIUM 40 MG TABLET.DR PO SCH (06:48)
[2023-03-07 07:22] LABS: BASOPHILS # (AUTO) 0.1 K/UL (0.0-0.2); BASOPHILS % (AUTO) 0.6 % (0.0-2.0); EOSINOPHILS % (AUTO) 0.1 % (0.0-7.0); HEMATOCRIT 33.8 % (36.7-47.1); HEMOGLOBIN 11.5 g/dL (12.5-16.3); LYMPHOCYTES # (AUTO) 1.1 K/uL (0.8-4.8); LYMPHOCYTES % (AUTO) 9.8 % (20.5-51.5); MEAN CORPUSCULAR HEMOGLOBIN 30.8 uug (23.8-33.4); MEAN CORPUSCULAR HGB CONC 34 g/dL (32.5-36.3); MEAN CORPUSCULAR VOLUME 90.6 fL (73.0-96.2); MONOCYTES # (AUTO) 1.2 K/uL (0.1-1.30); MONOCYTES % (AUTO) 10.5 % (0.0-11.0); NEUTROPHILS # (AUTO) 8.7 K/uL (1.8-8.9); PLATELET COUNT (AUTO) 163 K/uL (152-348); RED BLOOD CELL COUNT(AUTO) 3.73 MIL/uL (4.06-5.63); RED CELL DISTRIBUTION WIDTH 14.2 % (12.1-16.2); WHITE BLOOD COUNT (AUTO) 11.1 K/uL (3.6-10.2)
[2023-03-07 07:32] LABS: DIFFERENTIAL COMMENT 1
[2023-03-07] MEDS: ASPIRIN EC 81 MG TABLET.DR PO SCH (08:06)
[2023-03-07] MEDS: risperiDONE 0.5 MG TABLET PO SCH ×2 (08:06→16:22)
[2023-03-07] MEDS: DIVALPROEX ER 250 MG TAB.SR.24H PO SCH ×2 (08:06→16:22)
[2023-03-07] MEDS: SERTRALINE HCL 50 MG TABLET PO SCH (08:06)
[2023-03-07] MEDS: ENOXAPARIN SODIUM 40 MG/0.4 ML DISP.SYRIN SQ SCH (08:10)
[2023-03-07] MEDS: ALBUTEROL SULFATE 2.5 MG/ 0.5 ML NEBU NEB PRN (08:42)
[2023-03-07] MEDS ORDERED: CEFEPIME HCL 1 G in IV DEXTROSE 5% 50 ML IV SCH (08:45)
[2023-03-07] MEDS: hydrOXYzine HCL 25 MG TABLET PO SCH (12:41)
[2023-03-07 14:28] LABS: HIV-1 p24 ANTIGEN NON REACTIVE (NONREACTIVE); HIV-1/2 ANTIBODY NON REACTIVE (NONREACTIVE)
[2023-03-07] MEDS: CEFEPIME HCL 1 G in IV DEXTROSE 5% 50 ML IV SCH (16:25)
[2023-03-07] MEDS: TAMSULOSIN HCL 0.4 MG CAP.SR.24H PO SCH (20:04)
[2023-03-07] MEDS: MEGESTROL ACETATE 400 MG/10 ML LIQUID UDC PO SCH (20:13)
[2023-03-07] MEDS: GUAIFENESIN/DEXTROMETHORPHAN 5 ML UDC PO PRN (20:17)
[2023-03-08] MEDS: CEFEPIME HCL 1 G in IV DEXTROSE 5% 50 ML IV SCH ×3 (00:12→16:53)
[2023-03-08] MEDS: ACETAMINOPHEN 325 MG TABLET PO PRN ×2 (04:57→10:25)
[2023-03-08 05:47] VITALS: BP 117/68; TEMP 98.3; O2SAT 94
[2023-03-08] MEDS: PANTOPRAZOLE SODIUM 40 MG TABLET.DR PO SCH (06:03)
[2023-03-08 06:25] LABS: BASOPHILS # (AUTO) 0.1 K/UL (0.0-0.2); BASOPHILS % (AUTO) 0.7 % (0.0-2.0); EOSINOPHILS % (AUTO) 0.4 % (0.0-7.0); HEMATOCRIT 32.7 % (36.7-47.1); HEMOGLOBIN 11.2 g/dL (12.5-16.3); LYMPHOCYTES # (AUTO) 1.5 K/uL (0.8-4.8); LYMPHOCYTES % (AUTO) 16.3 % (20.5-51.5); MEAN CORPUSCULAR HGB CONC 34 g/dL (32.5-36.3); MEAN CORPUSCULAR VOLUME 90.3 fL (73.0-96.2); MONOCYTES # (AUTO) 0.8 K/uL (0.1-1.30); MONOCYTES % (AUTO) 8.9 % (0.0-11.0); NEUTROPHILS # (AUTO) 6.8 K/uL (1.8-8.9); NEUTROPHILS % (AUTO) 73.7 % (38.5-71.5); PLATELET COUNT (AUTO) 184 K/uL (152-348); RED BLOOD CELL COUNT(AUTO) 3.62 MIL/uL (4.06-5.63); RED CELL DISTRIBUTION WIDTH 14.1 % (12.1-16.2); WHITE BLOOD COUNT (AUTO) 9.3 K/uL (3.6-10.2)
[2023-03-08 06:39] LABS: DIFFERENTIAL COMMENT 1
[2023-03-08 06:59] LABS: CARBON DIOXIDE 28 mmol/L (21-32); CHLORIDE 105 mmol/L (98-107); CREATININE 1.1 mg/dL (0.6-1.3); GLUCOSE 110 mg/dL (74-106); MAGNESIUM 2.1 mg/dL (1.8-2.4); POTASSIUM 3.7 mmol/L (3.5-5.1); SODIUM SERUM 139 mmol/L (136-145); UREA NITROGEN, BLOOD 11 mg/dL (7-18)
[2023-03-08 07:15] LABS: C-REACTIVE PROTEIN 15.04 mg/dL (0.00-0.30); CALCIUM 9.3 mg/dL (8.5-10.1)
[2023-03-08 07:35] VITALS: BP 135/63; TEMP 97.7; O2SAT 93
[2023-03-08] MEDS: MEGESTROL ACETATE 400 MG/10 ML LIQUID UDC PO SCH ×2 (09:07→21:54)
[2023-03-08] MEDS: ASPIRIN EC 81 MG TABLET.DR PO SCH (09:07)
[2023-03-08] MEDS: DIVALPROEX ER 250 MG TAB.SR.24H PO SCH ×2 (09:07→16:53)
[2023-03-08] MEDS: SERTRALINE HCL 50 MG TABLET PO SCH (09:08)
[2023-03-08] MEDS: ENOXAPARIN SODIUM 40 MG/0.4 ML DISP.SYRIN SQ SCH (09:08)
[2023-03-08] MEDS: risperiDONE 0.5 MG TABLET PO SCH ×2 (09:08→16:53)
[2023-03-08] MEDS: hydrOXYzine HCL 25 MG TABLET PO SCH (12:27)
[2023-03-08 15:16] VITALS: BP 110/50; TEMP 98.4; O2SAT 91
[2023-03-08 20:15] VITALS: BP 115/59; TEMP 97.4; O2SAT 97
[2023-03-08] MEDS: TAMSULOSIN HCL 0.4 MG CAP.SR.24H PO SCH (21:54)
[2023-03-09] MEDS: CEFEPIME HCL 1 G in IV DEXTROSE 5% 50 ML IV SCH ×3 (00:29→16:14)
[2023-03-09] MEDS: TRAZODONE 100 MG TABLET PO PRN (02:12)
[2023-03-09] MEDS: GUAIFENESIN/DEXTROMETHORPHAN 5 ML UDC PO PRN ×2 (03:21→21:15)
[2023-03-09 05:31] VITALS: BP 114/72; TEMP 97.6; O2SAT 94
[2023-03-09] MEDS: PANTOPRAZOLE SODIUM 40 MG TABLET.DR PO SCH (06:54)
[2023-03-09 08:00] VITALS: BP 105/56; TEMP 98; O2SAT 93
[2023-03-09] MEDS: DIVALPROEX ER 250 MG TAB.SR.24H PO SCH ×2 (08:07→16:09)
[2023-03-09] MEDS: SERTRALINE HCL 50 MG TABLET PO SCH (08:07)
[2023-03-09] MEDS: ASPIRIN EC 81 MG TABLET.DR PO SCH (08:07)
[2023-03-09] MEDS: risperiDONE 0.5 MG TABLET PO SCH ×2 (08:07→16:09)
[2023-03-09] MEDS: ENOXAPARIN SODIUM 40 MG/0.4 ML DISP.SYRIN SQ SCH (08:07)
[2023-03-09] MEDS: MEGESTROL ACETATE 400 MG/10 ML LIQUID UDC PO SCH ×2 (08:08→20:01)
[2023-03-09] MEDS: ALBUTEROL SULFATE 2.5 MG/ 0.5 ML NEBU NEB PRN (08:26)
[2023-03-09] MEDS: hydrOXYzine HCL 25 MG TABLET PO SCH (12:23)
[2023-03-09 15:04] VITALS: BP 116/47; TEMP 98.2; O2SAT 96
[2023-03-09 15:06] VITALS: BP 109/58; TEMP 98.4; O2SAT 98
[2023-03-09] MEDS: ACETAMINOPHEN 325 MG TABLET PO PRN ×2 (16:09→21:15)
[2023-03-09] MEDS: TAMSULOSIN HCL 0.4 MG CAP.SR.24H PO SCH (20:01)
[2023-03-09 20:22] VITALS: BP 110/63; TEMP 97.3; O2SAT 96
[2023-03-10] MEDS: CEFEPIME HCL 1 G in IV DEXTROSE 5% 50 ML IV SCH ×3 (00:03→17:25)
[2023-03-10 04:40] VITALS: BP 119/57; TEMP 97.5; O2SAT 94
[2023-03-10] MEDS: PANTOPRAZOLE SODIUM 40 MG TABLET.DR PO SCH (06:00)
[2023-03-10 07:08] LABS: BASOPHILS # (AUTO) 0.1 K/UL (0.0-0.2); BASOPHILS % (AUTO) 1.2 % (0.0-2.0); EOSINOPHILS # (AUTO) 0.1 K/uL (0.0-0.7); EOSINOPHILS % (AUTO) 1.5 % (0.0-7.0); HEMATOCRIT 31.8 % (36.7-47.1); HEMOGLOBIN 10.9 g/dL (12.5-16.3); LYMPHOCYTES % (AUTO) 32.1 % (20.5-51.5); MEAN CORPUSCULAR HEMOGLOBIN 31.2 uug (23.8-33.4); MEAN CORPUSCULAR HGB CONC 34 g/dL (32.5-36.3); MEAN CORPUSCULAR VOLUME 90.9 fL (73.0-96.2); MONOCYTES # (AUTO) 0.4 K/uL (0.1-1.30); MONOCYTES % (AUTO) 6.8 % (0.0-11.0); NEUTROPHILS # (AUTO) 3.6 K/uL (1.8-8.9); NEUTROPHILS % (AUTO) 58.4 % (38.5-71.5); PLATELET COUNT (AUTO) 228 K/uL (152-348); RED CELL DISTRIBUTION WIDTH 14.5 % (12.1-16.2); WHITE BLOOD COUNT (AUTO) 6.1 K/uL (3.6-10.2)
[2023-03-10 07:20] LABS: DIFFERENTIAL COMMENT 1
[2023-03-10 07:44] VITALS: BP 109/58; TEMP 98.7; O2SAT 93
[2023-03-10 07:45] LABS: CALCIUM 9.5 mg/dL (8.5-10.1); CREATININE 0.9 mg/dL (0.6-1.3); MAGNESIUM 2.2 mg/dL (1.8-2.4); PHOSPHOROUS 3.1 mg/dL (2.5-4.9); POTASSIUM 3.7 mmol/L (3.5-5.1)
[2023-03-10 07:51] LABS: C-REACTIVE PROTEIN 5.65 mg/dL (0.00-0.30)
[2023-03-10] MEDS: ASPIRIN EC 81 MG TABLET.DR PO SCH (09:26)
[2023-03-10] MEDS: DIVALPROEX ER 250 MG TAB.SR.24H PO SCH ×2 (09:27→17:25)
[2023-03-10] MEDS: risperiDONE 0.5 MG TABLET PO SCH ×2 (09:27→17:25)
[2023-03-10] MEDS: SERTRALINE HCL 50 MG TABLET PO SCH (09:27)
[2023-03-10] MEDS: ENOXAPARIN SODIUM 40 MG/0.4 ML DISP.SYRIN SQ SCH (09:28)
[2023-03-10] MEDS: MEGESTROL ACETATE 400 MG/10 ML LIQUID UDC PO SCH ×2 (09:52→20:13)
[2023-03-10] MEDS: hydrOXYzine HCL 25 MG TABLET PO SCH (14:00)
[2023-03-10 15:14] VITALS: BP 131/59; TEMP 98.4; O2SAT 95
[2023-03-10] MEDS: ACETAMINOPHEN 325 MG TABLET PO PRN (18:41)
[2023-03-10 19:45] VITALS: BP 117/58; TEMP 97.5; O2SAT 95
[2023-03-10] MEDS: TRAZODONE 100 MG TABLET PO PRN (20:13)
[2023-03-10] MEDS: TAMSULOSIN HCL 0.4 MG CAP.SR.24H PO SCH (20:13)
[2023-03-10 21:39] VITALS: O2SAT 97
[2023-03-11] MEDS: CEFEPIME HCL 1 G in IV DEXTROSE 5% 50 ML IV SCH ×4 (01:05→16:33)
[2023-03-11] MEDS: ACETAMINOPHEN 325 MG TABLET PO PRN (02:31)
[2023-03-11 05:53] VITALS: BP 112/53; TEMP 98.4; O2SAT 95
[2023-03-11 06:06] LABS: BASOPHILS # (AUTO) 0.1 K/UL (0.0-0.2); BASOPHILS % (AUTO) 1.1 % (0.0-2.0); EOSINOPHILS # (AUTO) 0.1 K/uL (0.0-0.7); EOSINOPHILS % (AUTO) 1.9 % (0.0-7.0); HEMATOCRIT 32.4 % (36.7-47.1); HEMOGLOBIN 10.9 g/dL (12.5-16.3); LYMPHOCYTES # (AUTO) 2.1 K/uL (0.8-4.8); LYMPHOCYTES % (AUTO) 34.6 % (20.5-51.5); MEAN CORPUSCULAR HEMOGLOBIN 30.5 uug (23.8-33.4); MEAN CORPUSCULAR HGB CONC 34 g/dL (32.5-36.3); MEAN CORPUSCULAR VOLUME 90.9 fL (73.0-96.2); MONOCYTES # (AUTO) 0.4 K/uL (0.1-1.30); MONOCYTES % (AUTO) 6.3 % (0.0-11.0); NEUTROPHILS # (AUTO) 3.5 K/uL (1.8-8.9); NEUTROPHILS % (AUTO) 56.1 % (38.5-71.5); PLATELET COUNT (AUTO) 236 K/uL (152-348); RED BLOOD CELL COUNT(AUTO) 3.57 MIL/uL (4.06-5.63); WHITE BLOOD COUNT (AUTO) 6.2 K/uL (3.6-10.2)
[2023-03-11 06:10] LABS: DIFFERENTIAL COMMENT 1
[2023-03-11] MEDS: PANTOPRAZOLE SODIUM 40 MG TABLET.DR PO SCH (06:24)
[2023-03-11 06:53] LABS: POTASSIUM 3.7 mmol/L (3.5-5.1)
[2023-03-11 06:59] LABS: CALCIUM 8.9 mg/dL (8.5-10.1)
[2023-03-11 08:00] VITALS: BP 124/76; TEMP 97.5; O2SAT 96
[2023-03-11] MEDS: ENOXAPARIN SODIUM 40 MG/0.4 ML DISP.SYRIN SQ SCH (08:37)
[2023-03-11] MEDS: DIVALPROEX ER 250 MG TAB.SR.24H PO SCH ×3 (08:38→16:16)
[2023-03-11] MEDS: risperiDONE 0.5 MG TABLET PO SCH ×3 (08:38→16:16)
[2023-03-11] MEDS: ASPIRIN EC 81 MG TABLET.DR PO SCH (08:38)
[2023-03-11] MEDS: SERTRALINE HCL 50 MG TABLET PO SCH (08:39)
[2023-03-11] MEDS: MEGESTROL ACETATE 400 MG/10 ML LIQUID UDC PO SCH ×2 (08:39→20:24)
[2023-03-11 11:26] VITALS: BP 94/48; TEMP 97.7; O2SAT 94
[2023-03-11] MEDS: hydrOXYzine HCL 25 MG TABLET PO SCH (12:46)
[2023-03-11] MEDS ORDERED: MAG HYDROX/AL HYDROX/SIMETH 30 ML LIQUID UDC PO PRN (14:45)
[2023-03-11 15:24] VITALS: BP 111/56; TEMP 97.5; O2SAT 96
[2023-03-11] MEDS: TAMSULOSIN HCL 0.4 MG CAP.SR.24H PO SCH (20:24)
[2023-03-11 20:33] VITALS: BP 111/60; TEMP 97.3; O2SAT 96
[2023-03-12] MEDS: CEFEPIME HCL 1 G in IV DEXTROSE 5% 50 ML IV SCH ×3 (00:36→16:13)
[2023-03-12 04:20] VITALS: BP 114/51; TEMP 97.5; O2SAT 95
[2023-03-12 06:09] LABS: BASOPHILS # (AUTO) 0.1 K/UL (0.0-0.2); BASOPHILS % (AUTO) 1.2 % (0.0-2.0); EOSINOPHILS # (AUTO) 0.1 K/uL (0.0-0.7); EOSINOPHILS % (AUTO) 1.9 % (0.0-7.0); HEMATOCRIT 38.1 % (36.7-47.1); HEMOGLOBIN 12.8 g/dL (12.5-16.3); LYMPHOCYTES # (AUTO) 2.5 K/uL (0.8-4.8); LYMPHOCYTES % (AUTO) 33.6 % (20.5-51.5); MEAN CORPUSCULAR HEMOGLOBIN 30.6 uug (23.8-33.4); MEAN CORPUSCULAR HGB CONC 34 g/dL (32.5-36.3); MEAN CORPUSCULAR VOLUME 90.9 fL (73.0-96.2); MONOCYTES # (AUTO) 0.4 K/uL (0.1-1.30); MONOCYTES % (AUTO) 5.5 % (0.0-11.0); NEUTROPHILS # (AUTO) 4.3 K/uL (1.8-8.9); NEUTROPHILS % (AUTO) 57.8 % (38.5-71.5); PLATELET COUNT (AUTO) 267 K/uL (152-348); RED BLOOD CELL COUNT(AUTO) 4.19 MIL/uL (4.06-5.63); RED CELL DISTRIBUTION WIDTH 14.5 % (12.1-16.2); WHITE BLOOD COUNT (AUTO) 7.5 K/uL (3.6-10.2)
[2023-03-12] MEDS: PANTOPRAZOLE SODIUM 40 MG TABLET.DR PO SCH (06:18)
[2023-03-12 06:44] LABS: DIFFERENTIAL COMMENT 1
[2023-03-12 06:46] LABS: CALCIUM 10.1 mg/dL (8.5-10.1); CREATININE 1.3 mg/dL (0.6-1.3)
[2023-03-12 07:23] VITALS: BP 112/58; TEMP 97.6; O2SAT 96
[2023-03-12] MEDS: ASPIRIN EC 81 MG TABLET.DR PO SCH (08:00)
[2023-03-12] MEDS: DIVALPROEX ER 250 MG TAB.SR.24H PO SCH ×2 (08:00→16:10)
[2023-03-12] MEDS: MEGESTROL ACETATE 400 MG/10 ML LIQUID UDC PO SCH ×2 (08:00→21:33)
[2023-03-12] MEDS: SERTRALINE HCL 50 MG TABLET PO SCH (08:00)
[2023-03-12] MEDS: risperiDONE 0.5 MG TABLET PO SCH ×2 (08:00→16:10)
[2023-03-12] MEDS: ENOXAPARIN SODIUM 40 MG/0.4 ML DISP.SYRIN SQ SCH (08:11)
[2023-03-12 15:19] VITALS: BP 115/82; TEMP 97.9; O2SAT 95
[2023-03-12 20:51] VITALS: BP 120/68; TEMP 98.2; O2SAT 99
[2023-03-12] MEDS: TRAZODONE 100 MG TABLET PO PRN (21:33)
[2023-03-12] MEDS: TAMSULOSIN HCL 0.4 MG CAP.SR.24H PO SCH (21:33)
[2023-03-13] MEDS: CEFEPIME HCL 1 G in IV DEXTROSE 5% 50 ML IV SCH ×2 (00:24→09:43)
[2023-03-13 05:46] VITALS: BP 115/57; TEMP 97.8; O2SAT 100
[2023-03-13] MEDS: PANTOPRAZOLE SODIUM 40 MG TABLET.DR PO SCH (06:36)
[2023-03-13 07:32] LABS: CALCIUM 10.1 mg/dL (8.5-10.1); CREATININE 1.3 mg/dL (0.6-1.3); POTASSIUM 4.2 mmol/L (3.5-5.1)
[2023-03-13 07:41] VITALS: BP 111/64; TEMP 97.5; O2SAT 99
[2023-03-13] MEDS: SERTRALINE HCL 50 MG TABLET PO SCH (09:43)
[2023-03-13] MEDS: DIVALPROEX ER 250 MG TAB.SR.24H PO SCH (09:43)
[2023-03-13] MEDS: ASPIRIN EC 81 MG TABLET.DR PO SCH (09:43)
[2023-03-13] MEDS: risperiDONE 0.5 MG TABLET PO SCH (09:43)
[2023-03-13] MEDS: MEGESTROL ACETATE 400 MG/10 ML LIQUID UDC PO SCH (09:44)
[2023-03-13] MEDS: ENOXAPARIN SODIUM 40 MG/0.4 ML DISP.SYRIN SQ SCH (09:46)
[2023-03-13] MEDS ORDERED: CEFEPIME HCL 1 G in IV DEXTROSE 5% 50 ML IV SCH (21:00)
== END 2023-03-13 15:15 | DRG 189 ==
PROVIDERS: ADMIT Physical Medicine & Rehabilitation Pain Medicine; ATTEND Physical Medicine & Rehabilitation Pain Medicine
DX: J96.01 Acute respiratory failure with hypoxia (principal); J12.82 Pneumonia due to coronavirus disease 2019; E43 Unspecified severe protein-calorie malnutrition; I21.A1 Myocardial infarction type 2; U07.1 COVID-19; J69.0 Pneumonitis due to inhalation of food and vomit; N17.0 Acute kidney failure with tubular necrosis; J15.9 Unspecified bacterial pneumonia; D68.59 Other primary thrombophilia; G93.40 Encephalopathy, unspecified; J98.11 Atelectasis; D64.9 Anemia, unspecified; D69.6 Thrombocytopenia, unspecified; I10 Essential (primary) hypertension; I70.0 Atherosclerosis of aorta; N40.0 Benign prostatic hyperplasia without lower urinary tract symptoms; F32.A Depression, unspecified; E88.09 Other disorders of plasma-protein metabolism, not elsewhere classified; Z87.891 Personal history of nicotine dependence; R94.6 Abnormal results of thyroid function studies
CPT/HCPCS: 36415; 71045; 83550; 83735; 84100; 85025; 86140; 87806; 93005; 97535-GO-CO; J0692; J1650; J8999